=== PATIENT | male | born 1995 | race Caucasian/White ===

== ENCOUNTER 2016-10-22 06:40 | Inpatient (IN) | payer MEDICAID ==
[~2016-10-22] VITALS: Ht 180.3 cm; Wt 62.6 kg
[2016-10-22 07:51] LABS: BASOPHILS % 0.8 % (0.0-2.0); EOSINOPHILS % 6.7 % (0.0-5.0); HEMOGLOBIN. 13.8 g/dL (14.0-18.0); LYMPHOCYTES % 25.2 % (20.0-50.0); MEAN CORPUSCULAR HEMOGLOBIN 29.2 pg (28.0-32.0); MEAN CORPUSCULAR VOLUME 84.7 fL (80.0-94.0); MEAN PLATELET VOLUME 7.4 fl (7.4-10.4); NEUTROPHILS % 58.3 % (40.0-76.0); PLATELET 240 x1000/uL (130-400); RED BLOOD CELL COUNT 4.73 mill/uL (4.7-6.1)
[2016-10-22] MEDS ORDERED: LACTATED RINGERS 1,000 ML IV SCH (08:30)
[2016-10-22] MEDS ORDERED: HYDR-519 PO (09:09)
[2016-10-22] MEDS ORDERED: OMEP20TA2 PO (09:09)
[2016-10-22] MEDS ORDERED: IBUP-2030 PO (09:09)
[2016-10-22] MEDS ORDERED: MORPHINE SULFATE/PF 1MG/ML 10ML AMP ONE (10:44)
[2016-10-22] MEDS ORDERED: SKIN ADHESIVE 0.7 GM EA TOP ONE (10:45)
[2016-10-22] MEDS ORDERED: BUPIVACAINE/EPINEPH/PF 0.25%/0.0005 10ML ONE (10:45)
[2016-10-22] MEDS ORDERED: EPINEPHRINE 1:1000 1 MG/ML AMP ONE (10:45)
[2016-10-22] MEDS ORDERED: MIDAZOLAM HCL 2 MG/2 ML VIAL ONE ×2 (10:50→11:48)
[2016-10-22] MEDS ORDERED: FENTANYL CITRATE/PF 50MCG/ML 2ML VIAL ONE (11:20)
[2016-10-22] MEDS ORDERED: ONDANSETRON HCL 4MG/2ML VIAL ONE (11:31)
[2016-10-22] MEDS ORDERED: CEFAZOLIN SODIUM 1000MG/VIAL ONE (11:32)
[2016-10-22] MEDS ORDERED: PROPOFOL 10MG/ML 100ML 100 ML IV ONE (11:35)
[2016-10-22] MEDS ORDERED: LIDOCAINE HCL 1% 20ML VIAL (Pyxis) INJ ONE (11:50)
[2016-10-22] MEDS ORDERED: ONDANSETRON HCL 4MG/2ML VIAL IV PRN ×2 (12:45→14:45)
[2016-10-22] MEDS ORDERED: MEPERIDINE HCL/PF 25MG/ML CPJ IV PRN (12:45)
[2016-10-22] MEDS: HYDROMORPHONE HCL/PF 2MG/ML CPJ IV PRN ×4 (14:32→14:50)
[2016-10-22] MEDS ORDERED: HYDROCODONE/ACETAMINOPHEN 5/325MG TABLET PO PRN (14:45)
[2016-10-22] MEDS ORDERED: ZOLPIDEM TARTRATE 5MG TABLET PO PRN (14:45)
[2016-10-22] MEDS ORDERED: MAGNESIUM HYDROXIDE 400MG/5ML 30ML UDC PO PRN (14:45)
[2016-10-22] MEDS ORDERED: MORPHINE SULFATE 2 MG/ML CPJ (NOT FOR IM USE) IV PRN (14:45)
[2016-10-22] MEDS ORDERED: ACETAMINOPHEN 325MG TABLET PO PRN (14:45)
[2016-10-22 17:00] VITALS: BP 128/85
[2016-10-22] MEDS: MORPHINE SULFATE 4 MG/ML CPJ (NOT FOR IM USE) IV PRN (17:05)
[2016-10-22] MEDS: CEFAZOLIN 2,000 MG in DEXT 5% WATER 100 ML IV SCH (18:57)
[2016-10-22 20:00] VITALS: BP 126/82
[2016-10-22] MEDS: HYDROCODONE/ACETAMINOPHEN 5/325MG TABLET PO PRN (20:02)
[2016-10-23] VITALS (7 sets, daily range): BP systolic 114–133; BP diastolic 60–86
[2016-10-23] MEDS: HYDROCODONE/ACETAMINOPHEN 5/325MG TABLET PO PRN ×4 (02:40→16:25)
[2016-10-23] MEDS: CEFAZOLIN 2,000 MG in DEXT 5% WATER 100 ML IV SCH (02:40)
[2016-10-23] MEDS ORDERED: DOCUSATE SODIUM 100MG CAPSULE PO SCH (09:00)
[2016-10-23] MEDS: MORPHINE SULFATE 4 MG/ML CPJ (NOT FOR IM USE) IV PRN (15:17)
== END 2016-10-23 20:30 | disposition home or self-care (01) | DRG 313 ==
LOC: OR 06:40 → 6EST 06:41
PROVIDERS: ADMIT Orthopaedic Surgery; ATTEND Orthopaedic Surgery
PROC: 0MQP4ZZ Repair Left Knee Bursa and Ligament, Percutaneous Endoscopic Approach (ICD-10-PCS; 2016-10-22)
PROC: 0SCD4ZZ Extirpation of Matter from Left Knee Joint, Percutaneous Endoscopic Approach (ICD-10-PCS; 2016-10-22)
PROC: 0SBD4ZZ Excision of Left Knee Joint, Percutaneous Endoscopic Approach (ICD-10-PCS; 2016-10-22)
PROC: 0SSD0ZZ Reposition Left Knee Joint, Open Approach (ICD-10-PCS; 2016-10-22)
PROC: 0MNP4ZZ Release Left Knee Bursa and Ligament, Percutaneous Endoscopic Approach (ICD-10-PCS; principal; 2016-10-22 12:30)
DX: S83.095A Other dislocation of left patella, initial encounter (principal); M65.9 Synovitis and tenosynovitis, unspecified; S83.242A Other tear of medial meniscus, current injury, left knee, initial encounter; Z79.899 Other long term (current) drug therapy
CPT/HCPCS: 36415; 85025; 88304; 88311; 93970; 97162; 97535; J0171; J0690; J1170; J2175; J2250; J2270; J2274; J2405; J2704; J3010; J3490; J7030; J7060; J7120; L1830